=== PATIENT | male | born 1950 | race Asian ===

== ENCOUNTER → 2018-04-08 | Outpatient (CLI) | payer OTHER ==
[~2018-04-08] MED LIST: ASPI325 PO; CEPH500 PO; HYDACE5 PO; LOSA50; LOVA40; METF500; OMEP20ER; TELM20 PO
[2018-04-08 16:55] LABS: White Blood Cells, Urine Rare /hpf (0-5)
[2018-04-08 16:56] LABS: Bacteria Not Seen /hpf; Squamous Epithelial Cells Rare /hpf (Few)
== END | disposition home or self-care (01) ==
LOC: LAB SHORT 15:57 → LAB 15:57
PROVIDERS: Family Medicine
DX: R10.2 Pelvic and perineal pain (principal)
CPT/HCPCS: 81015

== ENCOUNTER 2021-04-29 19:15 | Emergency (ER) | payer OTHER ==
[~2021-04-29] VITALS: Ht 170.2 cm; Wt 81.7 kg
== END 2021-04-29 23:25 | disposition home or self-care (01) ==
LOC: ER 19:15
DX: S82.141A Displaced bicondylar fracture of right tibia, initial encounter for closed fracture (principal); S82.831A Other fracture of upper and lower end of right fibula, initial encounter for closed fracture; E11.9 Type 2 diabetes mellitus without complications; G47.30 Sleep apnea, unspecified; F17.210 Nicotine dependence, cigarettes, uncomplicated; Z79.899 Other long term (current) drug therapy; Z79.84 Long term (current) use of oral hypoglycemic drugs; Z79.82 Long term (current) use of aspirin; W01.0XXA Fall on same level from slipping, tripping and stumbling without subsequent striking against object, initial encounter
CPT/HCPCS: 73560-RT; 73700; 93926; A9270

== ENCOUNTER → 2023-02-12 | Outpatient (CLI) | payer OTHER ==
[~2023-02-12] MED LIST changes: +ACET500 PO; +FISH OIL 1,2001 EAC7 PO; +GLIP10ER PO
== END ==
LOC: LAB 14:00 → LAB SHORT 14:00
DX: R82.90 Unspecified abnormal findings in urine (principal)
CPT/HCPCS: 87086

== ENCOUNTER 2023-06-06 06:43 | Day surgery (SDC) | payer OTHER ==
[~2023-06-06] VITALS: Ht 167.6 cm; Wt 81.6 kg
[2023-06-06] VITALS (8 sets, daily range): BP systolic 134–171; BP diastolic 54–99
[~2023-06-06 06:43] MED LIST changes: -LOSA50; +LOSA50 PO
[2023-06-06] MEDS ORDERED: Heparin Sodium 1000 Units/ML 10ML MDV ONE (07:30)
[2023-06-06] MEDS ORDERED: Verapamil HCL 2.5 MG/ML 2ML Injection ONE (07:30)
[2023-06-06] MEDS ORDERED: NS 250 ML IV ONE (07:31)
[2023-06-06] MEDS ORDERED: NS 1,000 ML IV ONE ×2 (07:31→08:19)
[2023-06-06] MEDS ORDERED: Midazolam HCl 1MG / ML 2ML Vial ONE (08:17)
[2023-06-06] MEDS ORDERED: FentaNYL Citrate 50 MCG/ML 2 ML Injection ONE (08:17)
--- NOTE | 2023-06-06 10:30 | NUR ---
10CC AIR REMOVED FROM R WRIST TR BAND. NEG BLEEDING OR SWELLING.
--- NOTE | 2023-06-06 11:15 | NUR ---
R WRIST TR BAND REMOVED AND CLOTH DOT DRSG PLACED OVER PUNCTURE AREA. R WRIST SPLINT AND ARM SLING APPLIED. IV REMOVED. PT AND VERBALIZED UNDERSTANDING OF WRITTEN AND VERBAL D/C INST. PT AMB OUT OF THE HRT CENTER /C SBA /S DIFFICULTY.
[2023-06-06] MEDS ORDERED: ASPI81CH PO (11:17)
== END 2023-06-06 11:15 | disposition home or self-care (01) ==
LOC: MHTC 06:43
DX: I25.119 Atherosclerotic heart disease of native coronary artery with unspecified angina pectoris (principal); E11.9 Type 2 diabetes mellitus without complications; I10 Essential (primary) hypertension; E78.5 Hyperlipidemia, unspecified; G47.33 Obstructive sleep apnea (adult) (pediatric); F17.200 Nicotine dependence, unspecified, uncomplicated
CPT/HCPCS: 76937; 93458; C1769; C1887; C1894; J1644; J2250; J3010; J7030; J7050; Q9967

== ENCOUNTER → 2023-11-18 | Outpatient (CLI) | payer OTHER ==
[~2023-11-18] MED LIST changes: +ASPI81CH PO
[2023-11-18 17:55] LABS: Microalb/Creat Ratio UR, Rand 24.648 mg/g (0.000-30.000)
== END | disposition home or self-care (01) ==
LOC: LAB SHORT 16:07
PROVIDERS: Family Medicine
DX: E11.9 Type 2 diabetes mellitus without complications (principal)
CPT/HCPCS: 82043; 82570